=== PATIENT | female | born 1985 | race Caucasian/White ===

== ENCOUNTER 2017-01-24 15:11 | Emergency (ER) | payer MEDICAID ==
[~2017-01-24] VITALS: Ht 157.5 cm; Wt 83.8 kg
[~2017-01-24 15:11] MED LIST: ATEN25TA PO; [UNRECOGNIZED DRUG - REMARK]
[2017-01-24 15:38] LABS: HEMATOCRIT 42.7 % (34.6-47.8); HEMOGLOBIN 14.1 g/dL (11.7-16.4); WHITE BLOOD COUNT 9.9 x10^3/uL (3.4-10)
[2017-01-24 17:35] VITALS: BP 126/77
== END 2017-01-24 17:50 | disposition home or self-care (01) ==
LOC: ED 17:44
DX: R53.1 Weakness (principal); F43.0 Acute stress reaction; G40.909 Epilepsy, unspecified, not intractable, without status epilepticus
CPT/HCPCS: 36415; 70450; 70496; 70498; 80047; 85025; 85610; 85730; 93005; 99285

== ENCOUNTER 2019-03-04 14:05 | Emergency (ER) | payer MEDICAID ==
[~2019-03-04] VITALS: Ht 157.5 cm; Wt 78.8 kg
[2019-03-04] MEDS ORDERED: SODIUM CHLORIDE FLUSH 10ML SYR IVF ONE (14:30)
[2019-03-04] MEDS ORDERED: ONDANSETRON 2MG/ML, 2ML IVPush ONE (14:30)
[2019-03-04] MEDS ORDERED: MORPHINE SULFATE 4 MG/ML, 1ML IVPush PRN (14:30)
--- NOTE | 2019-03-04 14:31 | NUR ---
TO ED. LMP JAN 27. LOWER ABD CRAMPING, +. 8 MISCARRIAGES (1 ECTOPIC) 1 . G13. 3 LIVING CHILDREN. NO BLEEDING/DISCHARGE. CRAMPING SINCE LAST NIGHT. 8/10 PAIN. HX SEIZURES. CALL RIOS IN REACH, AWAITING MD SANDERS.
[2019-03-04 14:38] LABS: BASOPHILS # (AUTO) 0.01 x10^3/uL (0-0.1); BASOPHILS % (AUTO) 0 % (0-1); EOSINOPHILS # (AUTO) 0.12 x10^3/uL (0-0.4); EOSINOPHILS % (AUTO) 1 % (1-7); LYMPHOCYTES # (AUTO) 1.58 x10^3/uL (1-3.4); LYMPHOCYTES % (AUTO) 16 % (22-44); MD NO; MEAN CORPUSCULAR HEMOGLOBIN 30.8 pg (27.0-34.8); MEAN CORPUSCULAR HGB CONC 32.8 g/dL (32.4-35.8); MEAN CORPUSCULAR VOLUME 93.8 fL (80-100); MEAN PLATELET VOLUME 8.6 fL (7.4-10.4); MONOCYTES % (AUTO) 5 % (2-9); NEUTROPHILS % (AUTO) 78 % (42-75); PLATELET COUNT 322 x10^3/uL (130-400); RED BLOOD COUNT 4.13 x10^6/uL (3.82-5.3); RED CELL DISTRIBUTION WIDTH 15.8 % (9.6-15.2)
[2019-03-04 14:48] LABS: ALBUMIN 3.9 g/dL (3.4-5.0); ANION GAP 7 mmol/L (5-15); CALCIUM 8.5 mg/dL (8.5-10.1); CHLORIDE 110 mmol/L (98-107); CREATININE 0.69 mg/dL (0.55-1.02)
--- NOTE | 2019-03-04 14:54 | NUR ---
PT TO ULTRA SOUND
[2019-03-04] MEDS ORDERED: MORPHINE SULFATE 4 MG/ML, 1ML ONE (14:57)
[2019-03-04] MEDS ORDERED: ONDANSETRON 2MG/ML, 2ML ONE (14:57)
[2019-03-04 15:09] LABS: MICROSCOPIC INDICATED
[2019-03-04 15:12] LABS: CULTURE INDICATED? YES
[2019-03-04 15:27] VITALS: BP 123/76
--- NOTE | 2019-03-04 15:37 | NUR ---
ER NIHARIKA FORREST AT BEDSIDE TO DISCUSS POC
== END 2019-03-04 16:05 | disposition home or self-care (01) ==
LOC: ED 15:22
DX: O26.891 Other specified pregnancy related conditions, first trimester (principal); R10.31 Right lower quadrant pain; R11.0 Nausea; G40.909 Epilepsy, unspecified, not intractable, without status epilepticus; G43.909 Migraine, unspecified, not intractable, without status migrainosus
CPT/HCPCS: 36415; 76830; 80048; 81001; 82040; 84702; 85025; 86901; 87086; 96374; 96375; 99284; J2270; J2405

== ENCOUNTER 2019-03-20 08:59 | Emergency (ER) | payer SELFPAY ==
[~2019-03-20] VITALS: Ht 157.5 cm; Wt 77.0 kg
[2019-03-20 09:08] VITALS: BP 119/78
--- NOTE | 2019-03-20 09:35 | NUR ---
Justin ramirez. EDMD at bedside.
[2019-03-20 09:46] LABS: BASOPHILS # (AUTO) 0.02 x10^3/uL (0-0.1); BASOPHILS % (AUTO) 0 % (0-1); EOSINOPHILS # (AUTO) 0.02 x10^3/uL (0-0.4); EOSINOPHILS % (AUTO) 0 % (1-7); LYMPHOCYTES # (AUTO) 1.15 x10^3/uL (1-3.4); LYMPHOCYTES % (AUTO) 14 % (22-44); MD NO; MEAN CORPUSCULAR HEMOGLOBIN 30.5 pg (27.0-34.8); MEAN CORPUSCULAR HGB CONC 33.1 g/dL (32.4-35.8); MEAN CORPUSCULAR VOLUME 92.3 fL (80-100); MEAN PLATELET VOLUME 8.9 fL (7.4-10.4); MONOCYTES # (AUTO) 0.41 x10^3/uL (0.2-0.8); MONOCYTES % (AUTO) 5 % (2-9); NEUTROPHILS # (AUTO) 6.75 x10^3/uL (1.8-6.8); NEUTROPHILS % (AUTO) 81 % (42-75); PLATELET COUNT 228 x10^3/uL (130-400); RED BLOOD COUNT 4.24 x10^6/uL (3.82-5.3); RED CELL DISTRIBUTION WIDTH 14.6 % (9.6-15.2)
--- NOTE | 2019-03-20 09:48 | NUR ---
Pt states, "I had four seizures today. Pt denies trauma to head. No oral trauma observed. Pt states, "I did pee myself a little." Pt states, "I am , it is too early to tell how far along I am. This is my fourth , I have three living children, all vaginal births, and no complications or premature births. I am having some cramping, no bleeding or discharge though." Pt ambulates to room with steady gait and balance. NADN. Pt provided UA cup with instruciton, pt stated verbal understanding. Pt ambulates back to room with UA cup and sample with steady gait and balance. Pt connected to NIBP cuff, continous pulse ox, and cardiac exercise physiologist. Seizure precautions in place. Warm blankets provided per request. Pending ultrasound at this time. UA sent to lab.
[2019-03-20 09:57] LABS: ALANINE AMINOTRANSFERASE 24 U/L (12-78); ALBUMIN 3.6 g/dL (3.4-5.0); ANION GAP 6 mmol/L (5-15); CALCIUM 8.7 mg/dL (8.5-10.1); CHLORIDE 108 mmol/L (98-107); CREATININE 0.77 mg/dL (0.55-1.02)
[2019-03-20 09:59] LABS: ALKALINE PHOSPHATASE 72 U/L (45-117); BILIRUBIN,TOTAL 0.4 mg/dL (0.2-1.0); TOTAL PROTEIN 7.5 g/dL (6.4-8.2)
[2019-03-20 10:17] LABS: CULTURE INDICATED? YES; MICROSCOPIC INDICATED
--- NOTE | 2019-03-20 12:04 | NUR ---
Patient given discharge instructions and they have confirmed that they understand the instructions. Patient ambulatory with steady gait.
== END 2019-03-20 12:05 | disposition home or self-care (01) ==
LOC: ED 09:27
DX: O26.891 Other specified pregnancy related conditions, first trimester (principal); G40.319 Generalized idiopathic epilepsy and epileptic syndromes, intractable, without status epilepticus; Z3A.01 Less than 8 weeks gestation of pregnancy
CPT/HCPCS: 36415; 76801; 80053; 81001; 85025; 87086; 93005; 99284

== ENCOUNTER 2019-08-08 18:37 | Emergency (ER) | payer MEDICAID ==
[~2019-08-08] VITALS: Ht 160 cm; Wt 73.1 kg
--- NOTE | 2019-08-08 18:51 | NUR ---
Patient presents to ER c/o acute abd pain since 1600. Patient was sitting when the pain started. Patient states she has had diarrhea. Denies vag bleeding. + test yesterday. Has cysts on bilat ovaries. Patient is in obvious pain. Respirations even and unlabored.
[2019-08-08] MEDS ORDERED: ONDANSETRON 2MG/ML, 2ML IVPush ONE (19:00)
[2019-08-08] MEDS ORDERED: MORPHINE SULFATE 4 MG/ML, 1ML ONE ×2 (19:02→20:44)
[2019-08-08] MEDS ORDERED: ONDANSETRON 2MG/ML, 2ML ONE (19:02)
[2019-08-08 19:11] LABS: BASOPHILS # (AUTO) 0.03 x10^3/uL (0-0.1); BASOPHILS % (AUTO) 0 % (0-1); EOSINOPHILS # (AUTO) 0.09 x10^3/uL (0-0.4); EOSINOPHILS % (AUTO) 1 % (1-7); LYMPHOCYTES # (AUTO) 2.29 x10^3/uL (1-3.4); LYMPHOCYTES % (AUTO) 24 % (22-44); MD NO; MEAN CORPUSCULAR HEMOGLOBIN 30.8 pg (27.0-34.8); MEAN CORPUSCULAR HGB CONC 32.9 g/dL (32.4-35.8); MEAN CORPUSCULAR VOLUME 93.5 fL (80-100); MEAN PLATELET VOLUME 9.1 fL (7.4-10.4); MONOCYTES # (AUTO) 0.51 x10^3/uL (0.2-0.8); MONOCYTES % (AUTO) 5 % (2-9); NEUTROPHILS # (AUTO) 6.74 x10^3/uL (1.8-6.8); NEUTROPHILS % (AUTO) 70 % (42-75); PLATELET COUNT 265 x10^3/uL (130-400); RED BLOOD COUNT 4.24 x10^6/uL (3.82-5.3); RED CELL DISTRIBUTION WIDTH 14.6 % (9.6-15.2)
[2019-08-08] MEDS: MORPHINE SULFATE 4 MG/ML, 1ML IVPush PRN ×2 (19:18→20:46)
[2019-08-08 19:19] LABS: ALANINE AMINOTRANSFERASE 19 U/L (12-78); ALBUMIN 3.9 g/dL (3.4-5.0); ANION GAP 7 mmol/L (5-15); CALCIUM 8.9 mg/dL (8.5-10.1); CHLORIDE 109 mmol/L (98-107); CREATININE 0.86 mg/dL (0.55-1.02)
[2019-08-08 19:24] LABS: ALKALINE PHOSPHATASE 80 U/L (45-117); BILIRUBIN,TOTAL 0.3 mg/dL (0.2-1.0); TOTAL PROTEIN 8.2 g/dL (6.4-8.2)
--- NOTE | 2019-08-08 19:44 | NUR ---
Patient states she is unable to provide urine at this time.
[2019-08-08] MEDS ORDERED: SODIUM CHLORIDE 0.9% 1,000ML IVBOLUS ONE (20:00)
[2019-08-08] MEDS ORDERED: SODIUM CHLORIDE FLUSH 10ML SYR IVF ONE (20:00)
[2019-08-08 20:50] VITALS: BP 136/69
[2019-08-08 20:56] LABS: MICROSCOPIC NOT IND
--- NOTE | 2019-08-08 21:37 | NUR ---
Patient/Caregiver given discharge instructions and they have confirmed that they understand the instructions. Patient ambulatory with steady gait.
== END 2019-08-08 21:40 | disposition home or self-care (01) ==
LOC: ED 19:05
DX: O26.891 Other specified pregnancy related conditions, first trimester (principal); R10.31 Right lower quadrant pain; R19.7 Diarrhea, unspecified; Z3A.00 Weeks of gestation of pregnancy not specified
CPT/HCPCS: 36415; 76801; 80053; 81003; 84702; 85025; 86850; 86900; 96374; 96375; 96376; 99284; J2270; J2405; J7030

== ENCOUNTER 2019-08-10 10:27 | Emergency (ER) | payer MEDICAID ==
[~2019-08-10] VITALS: Ht 157.5 cm; Wt 72.6 kg
[2019-08-10 10:34] VITALS: BP 119/79
--- NOTE | 2019-08-10 11:19 | NUR ---
INCIDENT RESPONSE ANALYST: PT AMBULATORY TO ROOM FROM [facility] WITH STEADY GAIT WITH DIDIER LEE
[2019-08-10 12:35] LABS: BASOPHILS # (AUTO) 0.02 x10^3/uL (0-0.1); BASOPHILS % (AUTO) 0 % (0-1); EOSINOPHILS # (AUTO) 0.04 x10^3/uL (0-0.4); EOSINOPHILS % (AUTO) 1 % (1-7); LYMPHOCYTES # (AUTO) 1.32 x10^3/uL (1-3.4); LYMPHOCYTES % (AUTO) 17 % (22-44); MD NO; MEAN CORPUSCULAR HEMOGLOBIN 31.3 pg (27.0-34.8); MEAN CORPUSCULAR HGB CONC 33.4 g/dL (32.4-35.8); MEAN CORPUSCULAR VOLUME 93.8 fL (80-100); MEAN PLATELET VOLUME 8.8 fL (7.4-10.4); MONOCYTES # (AUTO) 0.37 x10^3/uL (0.2-0.8); MONOCYTES % (AUTO) 5 % (2-9); NEUTROPHILS # (AUTO) 6.07 x10^3/uL (1.8-6.8); NEUTROPHILS % (AUTO) 78 % (42-75); PLATELET COUNT 224 x10^3/uL (130-400); RED BLOOD COUNT 3.93 x10^6/uL (3.82-5.3); RED CELL DISTRIBUTION WIDTH 14.6 % (9.6-15.2)
[2019-08-10 12:47] LABS: ALANINE AMINOTRANSFERASE 19 U/L (12-78); ALBUMIN 3.6 g/dL (3.4-5.0); ANION GAP 8 mmol/L (5-15); CALCIUM 8.5 mg/dL (8.5-10.1); CHLORIDE 109 mmol/L (98-107); CREATININE 0.73 mg/dL (0.55-1.02)
--- NOTE | 2019-08-10 12:50 | NUR ---
PT TO US AT THIS TIME
[2019-08-10 12:52] LABS: ALKALINE PHOSPHATASE 61 U/L (45-117); BILIRUBIN,TOTAL 0.4 mg/dL (0.2-1.0); TOTAL PROTEIN 7.4 g/dL (6.4-8.2)
[2019-08-10 13:08] LABS: MICROSCOPIC NOT IND
== END 2019-08-10 16:37 | disposition home or self-care (01) ==
LOC: ED 12:34
DX: O26.891 Other specified pregnancy related conditions, first trimester (principal); R10.31 Right lower quadrant pain; R10.2 Pelvic and perineal pain; G40.909 Epilepsy, unspecified, not intractable, without status epilepticus; Z3A.01 Less than 8 weeks gestation of pregnancy
CPT/HCPCS: 36415; 72195; 76801; 80053; 81003; 84702; 85025; 99285

== ENCOUNTER 2019-09-03 11:31 | Emergency (ER) | payer MEDICAID ==
[~2019-09-03] VITALS: Ht 157.5 cm; Wt 72.3 kg
[2019-09-03] MEDS ORDERED: ONDANSETRON ODT 4 MG PO ONE (12:00)
--- NOTE | 2019-09-03 12:10 | NUR ---
PT PRESENTS TO ED WITH C/O LOWER BACK PAIN, RADIATING TO LEFT LOWER ABD AND VAG SPOTTING ONSET TODAY. PT STATES SHE HAS NOT YET SATURATED ONE PAD. PT STATES SHE IS 9 WEEKS . PT IS A&O, RESPS EVEN AND UNLABORED. URINE STRAIGHT CATH OBTAINED, STERILE TECHNIQUE MAINTAINED. PT TAKEN TO US AT THIS TIME, PT STATES SHE WILL WAIT FOR US TO BE COMPLETED BEFORE TAKING ZOFRAN.
[2019-09-03 12:23] LABS: MICROSCOPIC NOT IND
[2019-09-03] MEDS ORDERED: ACETAMINOPHEN 325 MG TABLET PO ONE (13:00)
[2019-09-03] MEDS ORDERED: ACETAMINOPHEN 325 MG TABLET ONE (13:01)
--- NOTE | 2019-09-03 13:08 | NUR ---
pt back from US, notes back/lower abd pain level 9/10. RE Pate notified, tylenol ordered and administered. pt denies nausea, declines zofran. pt a&o, resps even and unlabored, nadn. awaiting us/lab results and dispo.
[2019-09-03 13:09] LABS: BASOPHILS # (AUTO) 0.04 x10^3/uL (0-0.1); BASOPHILS % (AUTO) 0 % (0-1); EOSINOPHILS # (AUTO) 0.02 x10^3/uL (0-0.4); EOSINOPHILS % (AUTO) 0 % (1-7); LYMPHOCYTES # (AUTO) 1.48 x10^3/uL (1-3.4); LYMPHOCYTES % (AUTO) 17 % (22-44); MD NO; MEAN CORPUSCULAR HEMOGLOBIN 30.9 pg (27.0-34.8); MEAN CORPUSCULAR HGB CONC 33.3 g/dL (32.4-35.8); MEAN CORPUSCULAR VOLUME 92.6 fL (80-100); MEAN PLATELET VOLUME 8.7 fL (7.4-10.4); MONOCYTES % (AUTO) 6 % (2-9); NEUTROPHILS % (AUTO) 77 % (42-75); PLATELET COUNT 257 x10^3/uL (130-400); RED BLOOD COUNT 4.03 x10^6/uL (3.82-5.3); RED CELL DISTRIBUTION WIDTH 13.9 % (9.6-15.2)
[2019-09-03 13:21] LABS: ALBUMIN 3.2 g/dL (3.4-5.0); ANION GAP 8 mmol/L (5-15); CALCIUM 8.7 mg/dL (8.5-10.1); CHLORIDE 107 mmol/L (98-107)
--- NOTE | 2019-09-03 13:21 | NUR ---
RE LON AT BEDSIDE TO UPDATE PT WITH RESULTS AND POC.
--- NOTE | 2019-09-03 13:30 | NUR ---
PER EDPA LON PT IS RH POSITIVE WITH PREVIOUS SCREEN, NO NEED TO REPEAT RH TEST.
[2019-09-03 13:39] LABS: ALANINE AMINOTRANSFERASE 23 U/L (12-78); ALKALINE PHOSPHATASE 63 U/L (45-117); BILIRUBIN,TOTAL 0.3 mg/dL (0.2-1.0); CREATININE 0.67 mg/dL (0.55-1.02); TOTAL PROTEIN 7.2 g/dL (6.4-8.2)
[2019-09-03 14:18] VITALS: BP 121/68
--- NOTE | 2019-09-03 14:21 | NUR ---
late entry for 1421: pt given miscarriage package including candle and baby blanket, spiritual care consult placed for follow up. pt given instructions to follow up with obgyn. pt a&o, resps even and unlabored, nadn. pt notes tylenol helped pain. pt provided verbal support, pt is tearful but calm and states she is thankful she has one viable fetus. pt ambulatory with steady gait, given wc escort to dc desk.
== END 2019-09-03 14:21 | disposition home or self-care (01) ==
LOC: ED 13:54
DX: O30.001 Twin pregnancy, unspecified number of placenta and unspecified number of amniotic sacs, first trimester (principal); O99.89 Other specified diseases and conditions complicating pregnancy, childbirth and the puerperium; M54.5 Low back pain; Z3A.09 9 weeks gestation of pregnancy
CPT/HCPCS: 36415; 76801; 80053; 81003; 84702; 85025; 99284

== ENCOUNTER 2019-09-30 22:37 | Observation (INO) | payer MEDICAID ==
[~2019-09-30] VITALS: Ht 157.5 cm; Wt 77.1 kg
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
[2019-09-30] MEDS ORDERED: LORazepam 2 MG/ML, 1ML IVPush ONE (23:00)
[2019-09-30] MEDS ORDERED: SODIUM CHLORIDE FLUSH 10ML SYR IVF ONE (23:00)
[2019-09-30] MEDS ORDERED: SODIUM CHLORIDE 0.9% 1,000ML IVBOLUS ONE (23:00)
--- NOTE | 2019-09-30 23:10 | NUR ---
CXR has been to bedside. pt has had STAT head CT. lab has bene to bedside to draw
--- NOTE | 2019-09-30 23:11 | NUR ---
pt at bedside
[2019-09-30 23:17] LABS: BASOPHILS # (AUTO) 0.01 x10^3/uL (0-0.1); BASOPHILS % (AUTO) 0 % (0-1); EOSINOPHILS # (AUTO) 0.04 x10^3/uL (0-0.4); EOSINOPHILS % (AUTO) 1 % (1-7); LYMPHOCYTES # (AUTO) 1.61 x10^3/uL (1-3.4); LYMPHOCYTES % (AUTO) 18 % (22-44); MD NO; MEAN CORPUSCULAR HEMOGLOBIN 30.6 pg (27.0-34.8); MEAN CORPUSCULAR HGB CONC 33.4 g/dL (32.4-35.8); MEAN CORPUSCULAR VOLUME 91.5 fL (80-100); MEAN PLATELET VOLUME 8.7 fL (7.4-10.4); MONOCYTES # (AUTO) 0.55 x10^3/uL (0.2-0.8); MONOCYTES % (AUTO) 6 % (2-9); NEUTROPHILS % (AUTO) 75 % (42-75); PLATELET COUNT 244 x10^3/uL (130-400); RED BLOOD COUNT 4.18 x10^6/uL (3.82-5.3); RED CELL DISTRIBUTION WIDTH 13.5 % (9.6-15.2)
[2019-09-30 23:25] LABS: ALANINE AMINOTRANSFERASE 27 U/L (12-78); ALBUMIN 3.1 g/dL (3.4-5.0); ANION GAP 8 mmol/L (5-15); CALCIUM 8.9 mg/dL (8.5-10.1); CHLORIDE 109 mmol/L (98-107)
[2019-09-30 23:27] LABS: ALKALINE PHOSPHATASE 66 U/L (45-117); BILIRUBIN,TOTAL 0.4 mg/dL (0.2-1.0); TOTAL PROTEIN 7.4 g/dL (6.4-8.2)
--- NOTE | 2019-10-01 00:07 | NUR ---
pt in US
--- NOTE | 2019-10-01 01:30 | NUR ---
pt resting in position of comfort. able to turn her head and move arms slightly. calm and cooperative
[2019-10-01] MEDS ORDERED: LORazepam 2 MG/ML, 1ML ONE ×2 (01:59→13:32)
--- NOTE | 2019-10-01 02:04 | NUR ---
pt to be admitted. pt updated on POC. pt resting in position of comfort. no sz activity noted
--- NOTE | 2019-10-01 02:10 | NUR ---
pt assisted to bedpan. pt able to move with some assistance. urine sample collected. pt at bedside. pt denies pain at this time. sz precautions in place. no sz activity noted since admit. pt positioning for comfort
--- NOTE | 2019-10-01 02:20 | NUR ---
report to Christopher LEE for lunch
[2019-10-01 02:44] LABS: MICROSCOPIC INDICATED
[2019-10-01 02:51] LABS: AMPHETAMINE SCREEN, URINE Negative (Negative); BARBITURATE SCREEN, URINE Negative (Negative); BENZODIAZEPINE SCREEN, URINE Negative (Negative); CANNABINOID SCREEN, URINE Negative (Negative); COCAINE SCREEN, URINE Negative (Negative); METHADONE SCREEN, URINE Negative (Negative); OPIATE SCREEN, URINE Negative (Negative)
--- NOTE | 2019-10-01 03:05 | NUR ---
pt resting on gurney in no apparent distress. pt is able to talk and answer questions. some movement of extrmeities. pt able to move her head
--- NOTE | 2019-10-01 03:10 | NUR ---
NS infusion completed
--- NOTE | 2019-10-01 03:33 | NUR ---
hospitalist at bedside to evaluate for admit
--- NOTE | 2019-10-01 03:45 | NUR ---
hospitalist still at bedside
[2019-10-01] MEDS ORDERED: POTASSIUM CHLORIDE 20 MEQ TAB.ER.PRT PO ONE (04:30)
--- NOTE | 2019-10-01 04:40 | NUR ---
pt sleeping. easily arousable. no sz type activity noted since admit. pt placed on hospital bed. positioning for comfort. lights dimmed. no family at bedside at this time
--- NOTE | 2019-10-01 05:54 | NUR ---
no changes. pt sleeping. sz precautions in place. no sz like activity noted since admit. no apparent distress. awaiting admit bed assignment. no family at bedside
--- NOTE | 2019-10-01 06:38 | NUR ---
bed assignment has been recieved. attempting to call report
--- NOTE | 2019-10-01 06:39 | NUR ---
report called to Teddy LEE
--- NOTE | 2019-10-01 07:00 | NUR ---
pt to floor via hospital bed. pt sleeping. arousable. no sz activity noted
[2019-10-01 07:36] VITALS: BP 102/78
[2019-10-01] MEDS: NITROFURANTOIN (MACROBID) 100 MG CAPSULE PO SCH ×2 (09:00→20:48)
[2019-10-01] MEDS ORDERED: LORazepam 2 MG/ML, 1ML IVPush PRN (14:00)
[2019-10-01 14:26] VITALS: BP 120/76
[2019-10-01] MEDS: ACETAMINOPHEN 325 MG TABLET PO PRN (18:34)
[2019-10-01 19:41] VITALS: BP 109/70
[2019-10-02 00:41] VITALS: BP 110/74
[2019-10-02 05:14] LABS: ANION GAP 7 mmol/L (5-15); CALCIUM 8.6 mg/dL (8.5-10.1); CHLORIDE 110 mmol/L (98-107)
[2019-10-02 06:33] VITALS: BP 97/63
[2019-10-02] MEDS: NITROFURANTOIN (MACROBID) 100 MG CAPSULE PO SCH ×2 (09:05→20:58)
[2019-10-02 13:11] VITALS: BP 107/68
[2019-10-02] MEDS: ACETAMINOPHEN 325 MG TABLET PO PRN (13:23)
[2019-10-02 20:20] VITALS: BP 94/58
[2019-10-03 01:00] VITALS: BP 102/61
[2019-10-03 07:20] VITALS: BP 97/62
[2019-10-03] MEDS: ACETAMINOPHEN 325 MG TABLET PO PRN (08:03)
[2019-10-03] MEDS: NITROFURANTOIN (MACROBID) 100 MG CAPSULE PO SCH (08:03)
[2019-10-03] MEDS ORDERED: ONDANSETRON 2MG/ML, 2ML IVPush PRN (10:00)
[2019-10-03] MEDS ORDERED: ONDA4TAB7 PO (11:08)
[2019-10-03] MEDS ORDERED: NITR100C6 PO (11:08)
[2019-10-03 12:08] VITALS: BP 106/69
== END 2019-10-03 12:55 | disposition home or self-care (01) ==
LOC: ED 10-01 01:36 → INTOOBSV 10-01 01:53 → EDIP 10-01 01:53 → 4WST 10-01 07:14 → DCLOUNGE 10-03 12:48
PROVIDERS: ADMIT Family Medicine; ATTEND Hospitalist
DX: O99.351 Diseases of the nervous system complicating pregnancy, first trimester (principal); G40.909 Epilepsy, unspecified, not intractable, without status epilepticus; O99.341 Other mental disorders complicating pregnancy, first trimester; O26.893 Other specified pregnancy related conditions, third trimester; O99.281 Endocrine, nutritional and metabolic diseases complicating pregnancy, first trimester; E87.6 Hypokalemia; O20.8 Other hemorrhage in early pregnancy; R53.2 Functional quadriplegia; R10.30 Lower abdominal pain, unspecified; Z3A.13 13 weeks gestation of pregnancy; Z79.899 Other long term (current) drug therapy; Z91.19 Patient's noncompliance with other medical treatment and regimen
CPT/HCPCS: 36415; 70450; 70551; 71045; 76801; 80048; 80053; 80307; 81001; 85025; 86901; 87086; 93005; 95816; 96361; 96374; 96375; 97162; 97166; 97530; 99285; G0378; J2060; J2405; J7030

== ENCOUNTER 2019-11-05 19:46 | Emergency (ER) | payer MEDICAID ==
[~2019-11-05] VITALS: Ht 157.5 cm; Wt 72.0 kg
[~2019-11-05 19:46] MED LIST changes: +NITR100C6 PO; +ONDA4TAB7 PO
[2019-11-05 20:34] VITALS: BP 121/77
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
--- NOTE | 2019-11-05 21:06 | NUR ---
URINE SAMPLE COLLECTED.
[2019-11-05 21:29] LABS: BASOPHILS # (AUTO) 0.03 x10^3/uL (0-0.1); BASOPHILS % (AUTO) 0 % (0-1); EOSINOPHILS # (AUTO) 0.08 x10^3/uL (0-0.4); EOSINOPHILS % (AUTO) 1 % (1-7); LYMPHOCYTES # (AUTO) 1.75 x10^3/uL (1-3.4); LYMPHOCYTES % (AUTO) 18 % (22-44); MD NO; MEAN CORPUSCULAR HGB CONC 33.6 g/dL (32.4-35.8); MEAN CORPUSCULAR VOLUME 92.2 fL (80-100); MEAN PLATELET VOLUME 8.5 fL (7.4-10.4); MONOCYTES # (AUTO) 0.58 x10^3/uL (0.2-0.8); MONOCYTES % (AUTO) 6 % (2-9); NEUTROPHILS # (AUTO) 7.18 x10^3/uL (1.8-6.8); NEUTROPHILS % (AUTO) 75 % (42-75); PLATELET COUNT 256 x10^3/uL (130-400); RED BLOOD COUNT 3.68 x10^6/uL (3.82-5.3); RED CELL DISTRIBUTION WIDTH 14.2 % (9.6-15.2)
[2019-11-05 21:31] LABS: MICROSCOPIC AUTO
[2019-11-05 21:40] LABS: ALANINE AMINOTRANSFERASE 19 U/L (12-78); ALBUMIN 2.8 g/dL (3.4-5.0); ANION GAP 7 mmol/L (5-15); CALCIUM 8.6 mg/dL (8.5-10.1); CHLORIDE 108 mmol/L (98-107); CREATININE 0.66 mg/dL (0.55-1.02)
[2019-11-05 21:43] LABS: ALKALINE PHOSPHATASE 70 U/L (45-117); BILIRUBIN,TOTAL 0.3 mg/dL (0.2-1.0); TOTAL PROTEIN 6.9 g/dL (6.4-8.2)
== END 2019-11-05 22:55 | disposition home or self-care (01) ==
LOC: ED 21:34
DX: O26.892 Other specified pregnancy related conditions, second trimester (principal); F41.1 Generalized anxiety disorder; R94.31 Abnormal electrocardiogram [ECG] [EKG]; Z3A.17 17 weeks gestation of pregnancy
CPT/HCPCS: 36415; 80053; 81001; 85025; 87086; 93005; 99284

== ENCOUNTER 2020-03-31 11:21 | Outpatient (CLI) | payer MEDICAID | END 2020-03-31 13:21 | disposition home or self-care (01) | LOC: LDOP 11:21 | PROVIDERS: ATTEND Obstetrics & Gynecology | DX: O42.90 Premature rupture of membranes, unspecified as to length of time between rupture and onset of labor, unspecified weeks of gestation (principal) | CPT/HCPCS: 59025; 84112 ==

== ENCOUNTER 2020-04-09 11:44 | Inpatient (IN) | payer MEDICAID ==
[~2020-04-09] VITALS: Ht 157.5 cm; Wt 84.1 kg
[2020-04-09] MEDS ORDERED: MISOPROSTOL 200 MCG TABLET ONE (12:20)
[2020-04-09] MEDS ORDERED: OXYTOCIN 30U/ 0.9% NaCL 500ML 500 ML ONE (12:20)
[2020-04-09] MEDS ORDERED: NEWBORN KIT ONE (12:20)
[2020-04-09] MEDS ORDERED: LIDOCAINE 1%, 20ML ONE (12:20)
[2020-04-09] MEDS ORDERED: FENTANYL PF 100 MCG/2ML IV PRN (12:30)
[2020-04-09] MEDS ORDERED: CALCIUM CARBONATE 500 MG TAB.CHEW PO PRN (12:30)
[2020-04-09] MEDS ORDERED: OXYTOCIN 30U/ 0.9% NaCL 500ML 500 ML IV ONE (12:30)
[2020-04-09] MEDS ORDERED: ONDANSETRON 2MG/ML, 2ML IVPush PRN (12:30)
[2020-04-09] MEDS ORDERED: FENTANYL PF 100 MCG/2ML IVPush PRN (12:30)
[2020-04-09] MEDS ORDERED: LACTATED RINGERS 1,000 ML IV SCH ×2 (12:30→23:00)
[2020-04-09] MEDS ORDERED: TERBUTALINE 1 MG/ML, 1ML IVPush PRN (12:30)
[2020-04-09] MEDS ORDERED: TERBUTALINE 1 MG/ML, 1ML SQ PRN (12:30)
[2020-04-09] MEDS ORDERED: OXYTOCIN 30U/ 0.9% NaCL 500ML 500 ML IV PRN (12:30)
[2020-04-09] MEDS ORDERED: D5%-LACTATED RINGERS 1,000 ML IV SCH (12:30)
[2020-04-09 12:51] LABS: BASOPHILS % (AUTO) 0 % (0-1); EOSINOPHILS % (AUTO) 1 % (1-7); LYMPHOCYTES % (AUTO) 17 % (22-44); MEAN CORPUSCULAR HEMOGLOBIN 27.4 pg (27.0-34.8); MEAN CORPUSCULAR HGB CONC 32.8 g/dL (32.4-35.8); MEAN PLATELET VOLUME 8.6 fL (7.4-10.4); MONOCYTES % (AUTO) 7 % (2-9); NEUTROPHILS % (AUTO) 75 % (42-75); PLATELET COUNT 248 x10^3/uL (130-400); RED BLOOD COUNT 3.77 x10^6/uL (3.82-5.3); RED CELL DISTRIBUTION WIDTH 16.4 % (9.6-15.2)
[2020-04-09 12:53] LABS: MD NO
[2020-04-09] MEDS ORDERED: MISOPROSTOL 25 MCG TABLET ONE (13:31)
[2020-04-09] MEDS ORDERED: MISOPROSTOL 25 MCG TABLET VG PRN (14:00)
[2020-04-09] MEDS ORDERED: BUPIVACAINE 0.25% ONE (22:24)
[2020-04-09] MEDS ORDERED: FENTANYL/BUPIV./NS/PF 250 ML EPIDCONT ONE (22:24)
[2020-04-09] MEDS ORDERED: FENTANYL/BUPIV./NS/PF 250 ML EPIDCONT SCH (23:00)
[2020-04-09] MEDS ORDERED: LACTATED RINGERS 1,000 ML IVBOLUS PRN (23:00)
[2020-04-09] MEDS ORDERED: EPHEDRINE 50 MG/ML, 1ML IVPush PRN (23:00)
[2020-04-09] MEDS ORDERED: EPHEDRINE 50 MG/ML, 1ML ONE ×2 (23:01→23:14)
[2020-04-10] MEDS ORDERED: SIMETHICONE 80 MG CHEW TAB PO PRN (03:00)
[2020-04-10] MEDS ORDERED: MISOPROSTOL 200 MCG TABLET PR PRN (03:00)
[2020-04-10] MEDS ORDERED: OXYcodone IR 5MG TABLET PO PRN (03:00)
[2020-04-10] MEDS ORDERED: ONDANSETRON 2MG/ML, 2ML IV PRN (03:00)
[2020-04-10] MEDS ORDERED: ACETAMINOPHEN 325 MG TABLET PO PRN (03:00)
[2020-04-10] MEDS ORDERED: OXYcodone/APAP 5/325MG TABLET PO PRN (03:00)
[2020-04-10] MEDS ORDERED: DOCUSATE 100 MG CAPSULE PO PRN (03:00)
[2020-04-10] MEDS ORDERED: OXYTOCIN 30U/ 0.9% NaCL 500ML 500 ML IV SCH (03:00)
[2020-04-10] MEDS: IBUPROFEN 600 MG TABLET PO PRN ×2 (04:57→11:58)
[2020-04-10 05:05] VITALS: BP 111/65
[2020-04-10 06:10] VITALS: BP 110/72
[2020-04-10 07:45] VITALS: BP 111/74
[2020-04-10] MEDS: PRENATAL VIT/IRON/FA 1 EACH TABLET PO SCH (10:46)
[2020-04-10 10:58] LABS: BASOPHILS % (AUTO) 1 % (0-1); EOSINOPHILS % (AUTO) 0 % (1-7); LYMPHOCYTES % (AUTO) 10 % (22-44); MEAN CORPUSCULAR HEMOGLOBIN 26.9 pg (27.0-34.8); MEAN PLATELET VOLUME 8.6 fL (7.4-10.4); MONOCYTES % (AUTO) 6 % (2-9); NEUTROPHILS % (AUTO) 83 % (42-75); PLATELET COUNT 208 x10^3/uL (130-400); RED BLOOD COUNT 3.53 x10^6/uL (3.82-5.3); RED CELL DISTRIBUTION WIDTH 16.2 % (9.6-15.2)
[2020-04-10 11:29] LABS: MD SCAN
[2020-04-10 16:00] VITALS: BP 117/77
[2020-04-10] MEDS: DOCUSATE 50 MG/5 ML, 10ML UDC PO SCH (19:48)
[2020-04-10 19:52] VITALS: BP 137/79
[2020-04-11] MEDS: IBUPROFEN 600 MG TABLET PO PRN ×2 (00:48→08:30)
[2020-04-11 01:00] VITALS: BP 129/88
[2020-04-11 08:12] VITALS: BP 110/76
[2020-04-11] MEDS: PRENATAL VIT/IRON/FA 1 EACH TABLET PO SCH (08:30)
[2020-04-11] MEDS: DOCUSATE 50 MG/5 ML, 10ML UDC PO SCH (09:25)
[2020-04-11] MEDS ORDERED: IBUP-1222 PO (11:05)
== END 2020-04-11 11:30 | disposition home or self-care (01) | DRG 807 ==
LOC: LDIP 12:12 → 2NW 04-10 04:21
PROVIDERS: ADMIT Obstetrics & Gynecology; ATTEND Obstetrics & Gynecology
PROC: 10E0XZZ Delivery of Products of Conception, External Approach (ICD-10-PCS; principal; 2020-04-10)
PROC: 3E0R3BZ Introduction of Anesthetic Agent into Spinal Canal, Percutaneous Approach (ICD-10-PCS; 2020-04-10)
PROC: 00HU33Z Insertion of Infusion Device into Spinal Canal, Percutaneous Approach (ICD-10-PCS; 2020-04-10)
DX: O80 Encounter for full-term uncomplicated delivery (principal); Z37.0 Single live birth; Z20.822 Contact with and (suspected) exposure to COVID-19; Z3A.39 39 weeks gestation of pregnancy
CPT/HCPCS: 36415; 85025; 86592; 86850; 86900; 87635; G0378; J2590

== ENCOUNTER 2020-04-11 23:54 | Emergency (ER) | payer MEDICAID ==
[~2020-04-11] VITALS: Ht 157.5 cm; Wt 65.0 kg
[~2020-04-11 23:54] MED LIST changes: +IBUP-1222 PO
--- NOTE | 2020-04-12 00:16 | NUR ---
TASK RN. YOLIE FOR DIZZYNESS AND FEELING LIGHT HEADED. PT IS 2 DAYS . PT TOOK A PILL OF LECITHIN FOR FIRST TIME WHICH SHE ORDERED OFF [employer]. PT IS CONCERED FOR POSSIBLE ALLERGIC REACTION. PTRECEIVED 600 MLS NS FROM EMS AND PIV PLACED. PT DENIES BLEEDING AND DELIVERED VAGINALLY WITH NO COMPLICATIONS. [id number]
[2020-04-12 00:59] LABS: BASOPHILS % (AUTO) 0 % (0-1); EOSINOPHILS % (AUTO) 1 % (1-7); LYMPHOCYTES % (AUTO) 19 % (22-44); MD NO; MEAN CORPUSCULAR HEMOGLOBIN 27.2 pg (27.0-34.8); MEAN CORPUSCULAR HGB CONC 32.7 g/dL (32.4-35.8); MEAN PLATELET VOLUME 8.8 fL (7.4-10.4); MONOCYTES % (AUTO) 7 % (2-9); NEUTROPHILS % (AUTO) 73 % (42-75); PLATELET COUNT 240 x10^3/uL (130-400); RED CELL DISTRIBUTION WIDTH 16.8 % (9.6-15.2)
[2020-04-12 01:08] LABS: ALANINE AMINOTRANSFERASE 21 U/L (12-78); ALBUMIN 2.3 g/dL (3.4-5.0); ANION GAP 7 mmol/L (5-15); CALCIUM 8.5 mg/dL (8.5-10.1); CHLORIDE 113 mmol/L (98-107); CREATININE 0.79 mg/dL (0.55-1.02)
[2020-04-12 01:10] LABS: ALKALINE PHOSPHATASE 171 U/L (45-117); BILIRUBIN,TOTAL 0.2 mg/dL (0.2-1.0); TOTAL PROTEIN 6.3 g/dL (6.4-8.2)
[2020-04-12] MEDS ORDERED: ACETAMINOPHEN 500 MG TABLET ONE (01:27)
[2020-04-12] MEDS ORDERED: ONDANSETRON ODT 4 MG ONE (01:27)
[2020-04-12] MEDS ORDERED: ACETAMINOPHEN 500 MG TABLET PO ONE (01:30)
[2020-04-12] MEDS ORDERED: ONDANSETRON 4 MG TABLET PO ONE (01:30)
--- NOTE | 2020-04-12 01:32 | NUR ---
INA RN: PT ONLY WANTS [address] FINLEY AWARE. VS STABLE. NO ACUTE DISTRESS NOTED. FAMILY AT BEDSIDE. WILL CONTINUE TO MONITOR WHILE PRIMARY RN IS ON BREAK
[2020-04-12 01:33] VITALS: BP 102/62
--- NOTE | 2020-04-12 01:49 | NUR ---
BREAK RN: REPORT GIVEN TO JESUS YEBOAH
== END 2020-04-12 02:10 | disposition home or self-care (01) ==
LOC: ED 04-12 00:24
DX: D62 Acute posthemorrhagic anemia (principal); R42 Dizziness and giddiness; R53.1 Weakness
CPT/HCPCS: 36415; 80053; 85025; 93005; 99284; Q0162

== ENCOUNTER 2020-04-14 20:23 | Emergency (ER) | payer MEDICAID ==
[~2020-04-14] VITALS: Ht 157.5 cm; Wt 79.0 kg
[2020-04-14] MEDS ORDERED: SODIUM CHLORIDE FLUSH 10ML SYR IVF ONE (21:00)
[2020-04-14 21:16] LABS: BASOPHILS % (AUTO) 1 % (0-1); EOSINOPHILS % (AUTO) 1 % (1-7); LYMPHOCYTES % (AUTO) 9 % (22-44); MEAN CORPUSCULAR HEMOGLOBIN 27.2 pg (27.0-34.8); MEAN CORPUSCULAR HGB CONC 32.5 g/dL (32.4-35.8); MEAN PLATELET VOLUME 8.2 fL (7.4-10.4); MONOCYTES % (AUTO) 5 % (2-9); NEUTROPHILS % (AUTO) 85 % (42-75); PLATELET COUNT 261 x10^3/uL (130-400); RED BLOOD COUNT 3.83 x10^6/uL (3.82-5.3)
[2020-04-14 21:17] LABS: MD NO
[2020-04-14 21:33] LABS: ALBUMIN 2.7 g/dL (3.4-5.0); ANION GAP 6 mmol/L (5-15); CALCIUM 8.7 mg/dL (8.5-10.1); CHLORIDE 111 mmol/L (98-107)
[2020-04-14 21:36] LABS: CREATININE 0.76 mg/dL (0.55-1.02)
--- NOTE | 2020-04-14 23:23 | NUR ---
pt called to room from lobby
[2020-04-14] MEDS ORDERED: OMNIPAQUE 350 MG/ML, 100ML BOTTLE ONE (23:59)
--- NOTE | 2020-04-15 | NUR ---
patient changed into gown. placed on pelvic bed. ambulated to bathroom. uncle at bedside. call mustafa in reach. safety maintained
[2020-04-15 00:19] LABS: MICROSCOPIC AUTO
--- NOTE | 2020-04-15 00:30 | NUR ---
patient in NAD. resting in bed. c/o pain in abdomen with movement. call mustafa in reach. safety maintained. will continue to monitor
--- NOTE | 2020-04-15 01:31 | NUR ---
patient resting in bed. in NAD. call mustafa in reach. no further needs at this time. SHIRT PRESSER cart outside room for pelvic exam
[2020-04-15] MEDS ORDERED: IRON1TAB60 PO (01:34)
--- NOTE | 2020-04-15 01:50 | NUR ---
pelvix exam performed by Dr. Whitt and RN at bedside.
--- NOTE | 2020-04-15 02:35 | NUR ---
discharge instructions reviewed with patient. no further questions at this time. patient notified that we are culturing her urine as she repeated "i dont know how i got this". all personal belongings with patient. transferred to lobby via WC. VS remain stable on RA
[2020-04-15 02:54] VITALS: BP 111/64
== END 2020-04-15 02:57 | disposition home or self-care (01) ==
LOC: ED 23:44
DX: O86.22 Infection of bladder following delivery (principal); M54.5 Low back pain; G43.909 Migraine, unspecified, not intractable, without status migrainosus; G40.909 Epilepsy, unspecified, not intractable, without status epilepticus; Z90.49 Acquired absence of other specified parts of digestive tract
CPT/HCPCS: 36415; 74177; 76830; 80048; 81001; 82040; 84702; 85025; 86901; 87086; 99285; Q9967

== ENCOUNTER 2020-05-22 10:07 | Emergency (ER) | payer MEDICAID, OTHER ==
[~2020-05-22] VITALS: Ht 157.5 cm; Wt 70.0 kg
[~2020-05-22 10:07] MED LIST changes: +IRON1TAB60 PO
--- NOTE | 2020-05-22 11:02 | NUR ---
PT. IS NON-COMPLIANT WITH WEARIMG THE C-COLLAR.
--- NOTE | 2020-05-22 11:03 | NUR ---
ASSISTANT BUYER: PT TO ROOM FROM LOBBY
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
--- NOTE | 2020-05-22 11:57 | NUR ---
REPORT GIVEN TO MAURIZIO LEE.
--- NOTE | 2020-05-22 12:24 | NUR ---
pt in bed nursing infant.
[2020-05-22] MEDS ORDERED: METHOCARBAMOL 750 MG TABLET PO ONE (12:30)
[2020-05-22] MEDS ORDERED: PLEASE ENTER WEIGHT MC SCH (12:30)
[2020-05-22] MEDS ORDERED: METHOCARBAMOL 750 MG TABLET ONE (12:34)
--- NOTE | 2020-05-22 13:07 | NUR ---
pt down to xray
--- NOTE | 2020-05-22 13:14 | NUR ---
spoke with x ray. working on resulting images at this time.
--- NOTE | 2020-05-22 13:19 | NUR ---
pt back from xray
[2020-05-22 14:37] VITALS: BP 128/62
--- NOTE | 2020-05-22 14:39 | NUR ---
PT LEFT IN WHEELCHAIR WITH SPOUSE. WAS UP WALKING WITH STEADY GAIT. IF S&S WORSEN RETURN TO ER. GIVEN RX
== END 2020-05-22 14:44 | disposition home or self-care (01) ==
LOC: ED 13:28
DX: S39.012A Strain of muscle, fascia and tendon of lower back, initial encounter (principal); S16.1XXA Strain of muscle, fascia and tendon at neck level, initial encounter; G89.11 Acute pain due to trauma; M25.561 Pain in right knee; R10.9 Unspecified abdominal pain; G43.909 Migraine, unspecified, not intractable, without status migrainosus; V49.49XA Driver injured in collision with other motor vehicles in traffic accident, initial encounter; Y93.89 Activity, other specified; Y92.488 Other paved roadways as the place of occurrence of the external cause; Y99.8 Other external cause status
CPT/HCPCS: 72110; 72125; 99284

== ENCOUNTER 2020-05-23 20:10 | Emergency (ER) | payer MEDICAID, OTHER ==
[~2020-05-23] VITALS: Ht 157.5 cm; Wt 76.5 kg
[2020-05-23 21:46] LABS: BASOPHILS % (AUTO) 1 % (0-1); EOSINOPHILS % (AUTO) 2 % (1-7); LYMPHOCYTES % (AUTO) 28 % (22-44); MEAN CORPUSCULAR HEMOGLOBIN 28.1 pg (27.0-34.8); MEAN CORPUSCULAR HGB CONC 32.8 g/dL (32.4-35.8); MEAN PLATELET VOLUME 8.5 fL (7.4-10.4); MONOCYTES % (AUTO) 7 % (2-9); NEUTROPHILS % (AUTO) 63 % (42-75); PLATELET COUNT 263 x10^3/uL (130-400); RED BLOOD COUNT 4.32 x10^6/uL (3.82-5.3); RED CELL DISTRIBUTION WIDTH 19.3 % (9.6-15.2)
[2020-05-23 21:49] LABS: MD NO
[2020-05-23 21:59] LABS: ALANINE AMINOTRANSFERASE 25 U/L (12-78); ALBUMIN 3.7 g/dL (3.4-5.0); ANION GAP 10 mmol/L (5-15); CALCIUM 8.2 mg/dL (8.5-10.1); CHLORIDE 110 mmol/L (98-107); CREATININE 0.79 mg/dL (0.55-1.02)
[2020-05-23] MEDS ORDERED: OMNIPAQUE 350 MG/ML, 100ML BOTTLE ONE (22:00)
[2020-05-23 22:03] LABS: ALKALINE PHOSPHATASE 100 U/L (45-117); BILIRUBIN,TOTAL 0.2 mg/dL (0.2-1.0); TOTAL PROTEIN 7.5 g/dL (6.4-8.2)
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
[2020-05-23 23:31] VITALS: BP 121/76
[2020-05-23] MEDS ORDERED: IBUPROFEN 800 MG TABLET ONE (23:52)
[2020-05-24] MEDS ORDERED: IBUPROFEN 800 MG TABLET PO ONE
== END 2020-05-24 | disposition home or self-care (01) ==
LOC: ED 21:39
DX: R10.31 Right lower quadrant pain (principal); G40.909 Epilepsy, unspecified, not intractable, without status epilepticus; Z90.49 Acquired absence of other specified parts of digestive tract; V49.09XA Driver injured in collision with other motor vehicles in nontraffic accident, initial encounter; Y93.89 Activity, other specified; Y92.89 Other specified places as the place of occurrence of the external cause; Y99.8 Other external cause status
CPT/HCPCS: 36415; 74177; 80053; 84703; 85025; 99285; Q9967

== ENCOUNTER 2020-09-08 14:20 | Inpatient (IN) | payer MEDICAID ==
[~2020-09-08] VITALS: Ht 157.5 cm; Wt 76.0 kg
[2020-09-08] MEDS: LORazepam 2 MG/ML, 1ML IVPush PRN ×2 (14:20→14:40)
--- NOTE | 2020-09-08 14:25 | NUR ---
LATE ENTRY DUE TO PATIENT CARE: PATIENT HAVING SEIZURE, VERBAL ORDER FOR SECOND DOSE OF 2 MG ATIVAN RECEIVED FROM ERMD, GIVEN IV. ERMD AT BEDSIDE, VITALS STABLE THROUGHOUT SEIZURE AND AFTER. NAVDEEP WOULD LIKE PATIENT TAKEN TO CT.
[2020-09-08 14:33] LABS: BASOPHILS % (AUTO) 0 % (0-1); EOSINOPHILS % (AUTO) 2 % (1-7); LYMPHOCYTES % (AUTO) 32 % (22-44); MEAN CORPUSCULAR HEMOGLOBIN 30.1 pg (27.0-34.8); MEAN CORPUSCULAR HGB CONC 33.4 g/dL (32.4-35.8); MEAN PLATELET VOLUME 9.1 fL (7.4-10.4); MONOCYTES % (AUTO) 8 % (2-9); NEUTROPHILS % (AUTO) 58 % (42-75); PLATELET COUNT 268 x10^3/uL (130-400); RED BLOOD COUNT 4.34 x10^6/uL (3.82-5.3); RED CELL DISTRIBUTION WIDTH 14.9 % (9.6-15.2)
--- NOTE | 2020-09-08 14:33 | NUR ---
BIB EMS WITH CHIEF C/O LEFT-SIDED WEAKNESS. PER EMS LEFT-SIDED WEAKNESS STARTED AT 1300, PATIENT HAD WITNESSED SYNCOPAL EPISODE PRIOR. EMS REPORTS MULTIPLE WITNESSED SYNCOPAL EPISODES EN ROUTE. BLOOD GLUCOSE 88, 20 GUAGE IV STARTED EN ROUTE AND 4 MG ZOFRAN ADMINISTERED. PATIENT MET AT DOOR BY RN AND ERMD, NEURO ASSESSMENT PERFORMED, PATIENT HAD WITNESSED SEIZURE THAT LASTED ABOUT 15 SECONDS. 2 MG ATIVAN GIVEN IV PER VERBAL ORDER, CODE NEURO CANCELLED AND PATIENT TAKEN TO ROOM. CONNECTED TO MONITOR, SINUS TACH NOTED ON MONITOR, OTHER VSS, SEIZURE PRECAUTIONS IN PLACE.
--- NOTE | 2020-09-08 14:35 | NUR ---
PATIENT TO CT SCAN.
[2020-09-08 14:46] LABS: ALANINE AMINOTRANSFERASE 23 U/L (12-78); ALBUMIN 4.1 g/dL (3.4-5.0); ANION GAP 11 mmol/L (5-15); CHLORIDE 108 mmol/L (98-107); CREATININE 0.72 mg/dL (0.55-1.02)
[2020-09-08 14:48] LABS: ALKALINE PHOSPHATASE 106 U/L (45-117); BILIRUBIN,TOTAL 0.3 mg/dL (0.2-1.0); TOTAL PROTEIN 8.4 g/dL (6.4-8.2)
--- NOTE | 2020-09-08 15:09 | NUR ---
PATIENT RESTING IN GURNEY, EYES CLOSED, RESP EVEN AND UNLABORED, CONNECTED TO MONITOR, HR DOWN TO 90'S FROM 120-130'S, OTHER VSS, SEIZURE PRECAUTIONS IN PLACE, CALL LIGHT WITHIN REACH.
[2020-09-08] MEDS ORDERED: LORazepam 2 MG/ML, 1ML ONE (15:15)
--- NOTE | 2020-09-08 15:30 | NUR ---
ASSUMED CARE OF PT. SEIZURE PADS IN PLACE. PT RESPONDS TO PAINFUL STIMULI BY MOVING AND MOANING. WILL CONTINUE TO MONITOR
--- NOTE | 2020-09-08 16:25 | NUR ---
PT REMAINS OBTUNDED. MD TO RE-EVALUATE. WILL CONTINUE TO MONITOR
--- NOTE | 2020-09-08 17:19 | NUR ---
MD AT BEDSIDE AND PT RESPONDING. PT MOVING RIGHT EXTREMITIES WHEN ASKED. MOVING RIGHT EXTREMITIES, MOVING LEFT ARM BUT LIFTING IT SIX INCHES BEFORE DROPPING IT TO BED. AFTER MD LEFT ROOM, PT STATES SHE CANNOT MOVE LEFT LEG BUT CAN FEEL TOUCH. STATES SHE NEEDS A BREAST PUMP BECAUSE SHE IS LACTATING. PT THEN SHIVERING AND PROVIDED WARMER. INFORMED PT THAT MRI TO BE COMPLETED AND RECEIVING PERMISSION TO CALL TO INFORM HIM SHE IS HERE AND CIRCUMSTANCES.
--- NOTE | 2020-09-08 17:35 | NUR ---
OFF FLOOR TO MRI
[2020-09-08 17:49] LABS: SALICYLATE LEVEL < 1.7 mg/dL (2.8-20.0)
[2020-09-08] MEDS ORDERED: GADOTERATE 7.5 MMOL/15ML SYR ONE (17:59)
--- NOTE | 2020-09-08 18:54 | NUR ---
BACK IN ROOM FROM MRI. PT TALKING ON TELEPHONE. PROVIDED BREAST PUMP. PT NOW MOVING LEFT LEG BUT DROPS TO MATTY
--- NOTE | 2020-09-08 19:34 | NUR ---
AWAITING MRI REPORT FOR DISPO. PT IN NO DISTRESS. WILL CONTINUE TO MONITOR
--- NOTE | 2020-09-08 20:22 | NUR ---
RESTING WITH EYES CLOSED. BENNETT ORDERED BY MD AND REQUESTED FROM PHARMACY. INTENTION TO ADMIT
[2020-09-08] MEDS ORDERED: LEVETIRACETAM 1,000 MG in SODIUM CHLORIDE 0.9% 100 ML IV ONE (20:30)
[2020-09-08] MEDS ORDERED: SODIUM CHLORIDE FLUSH 10ML SYR IVF PRN (20:30)
--- NOTE | 2020-09-08 20:49 | NUR ---
REPORT TO LUPE LEE
--- NOTE | 2020-09-08 21:23 | NUR ---
PT AWAKE, SLOW TO RESPOND. HOSPITALIST AT FOR EVAL. PT +L SIDED WEAKNESS. ASSISTED C BED ARREDONDO, UDS COLLECTED & SENT. KEPPRA INFUSING WELL, AWARE OF PLAN TO TRANSFER UPSTAIRS. WILL CTM.
[2020-09-08] MEDS ORDERED: GABAPENTIN 300 MG CAPSULE PO PRN (21:30)
[2020-09-08] MEDS ORDERED: OXYcodone IR 5MG TABLET PO PRN (21:30)
[2020-09-08] MEDS ORDERED: DOCUSATE 100 MG CAPSULE PO PRN (21:30)
[2020-09-08] MEDS ORDERED: ONDANSETRON 2MG/ML, 2ML IVPush PRN (21:30)
[2020-09-08] MEDS ORDERED: ENALAPRILAT 1.25 MG/ML, 2ML IVPush PRN (21:30)
[2020-09-08] MEDS ORDERED: ACETAMINOPHEN 325 MG TABLET PO PRN (21:30)
[2020-09-08] MEDS ORDERED: GUAIFENESIN/DM 200-20MG, 10ML UDC PO PRN (21:30)
[2020-09-08] MEDS ORDERED: BACLOFEN 10 MG TABLET PO PRN (21:30)
[2020-09-08] MEDS ORDERED: ZOLPIDEM 5MG TABLET PO PRN (21:30)
[2020-09-08 21:44] LABS: AMPHETAMINE SCREEN, URINE Negative (Negative); BARBITURATE SCREEN, URINE Negative (Negative); BENZODIAZEPINE SCREEN, URINE Negative (Negative); CANNABINOID SCREEN, URINE Negative (Negative); COCAINE SCREEN, URINE Negative (Negative); METHADONE SCREEN, URINE Negative (Negative); OPIATE SCREEN, URINE Negative (Negative)
[2020-09-08 22:09] VITALS: BP 109/69
[2020-09-08] MEDS: LACTATED RINGERS 1,000 ML IV SCH (22:21)
[2020-09-08] MEDS: ENOXAPARIN 40 MG/0.4 ML SQ SCH (22:22)
[2020-09-09] VITALS (7 sets, daily range): BP systolic 96–135; BP diastolic 62–86
[2020-09-09 05:32] LABS: CHLORIDE 112 mmol/L (98-107)
[2020-09-09 05:37] LABS: ANION GAP 3 mmol/L (5-15); CALCIUM 8.3 mg/dL (8.5-10.1); CREATININE 0.57 mg/dL (0.55-1.02)
[2020-09-09 05:38] LABS: BASOPHILS % (AUTO) 0 % (0-1); EOSINOPHILS % (AUTO) 2 % (1-7); LYMPHOCYTES % (AUTO) 25 % (22-44); MEAN CORPUSCULAR HEMOGLOBIN 30.1 pg (27.0-34.8); MEAN CORPUSCULAR HGB CONC 33.4 g/dL (32.4-35.8); MEAN PLATELET VOLUME 8.8 fL (7.4-10.4); MONOCYTES % (AUTO) 7 % (2-9); NEUTROPHILS % (AUTO) 66 % (42-75); PLATELET COUNT 219 x10^3/uL (130-400); RED BLOOD COUNT 3.91 x10^6/uL (3.82-5.3); RED CELL DISTRIBUTION WIDTH 14.8 % (9.6-15.2)
[2020-09-09] MEDS: (Iron,Carbonyl/Vit C/Vit B12/Fa** (Iron 100 Plus Tablet**) 1 T HOMEMEDPO SCH (09:00)
[2020-09-09] MEDS: LACTATED RINGERS 1,000 ML IV SCH (11:18)
[2020-09-09] MEDS ORDERED: LORazepam 2 MG/ML, 1ML ONE (21:33)
[2020-09-09] MEDS: ENOXAPARIN 40 MG/0.4 ML SQ SCH (21:50)
[2020-09-09] MEDS ORDERED: LORazepam 2 MG/ML, 1ML IVPush PRN (22:00)
[2020-09-09 22:34] LABS: BASOPHILS % (AUTO) 1 % (0-1); EOSINOPHILS % (AUTO) 2 % (1-7); LYMPHOCYTES % (AUTO) 30 % (22-44); MEAN CORPUSCULAR HEMOGLOBIN 30.2 pg (27.0-34.8); MEAN CORPUSCULAR HGB CONC 33.8 g/dL (32.4-35.8); MEAN PLATELET VOLUME 8.8 fL (7.4-10.4); MONOCYTES % (AUTO) 7 % (2-9); NEUTROPHILS % (AUTO) 61 % (42-75); PLATELET COUNT 208 x10^3/uL (130-400); RED BLOOD COUNT 3.85 x10^6/uL (3.82-5.3); RED CELL DISTRIBUTION WIDTH 15.1 % (9.6-15.2)
[2020-09-09 22:43] LABS: ALANINE AMINOTRANSFERASE 19 U/L (12-78); ALBUMIN 3.1 g/dL (3.4-5.0); ANION GAP 8 mmol/L (5-15); CALCIUM 8.4 mg/dL (8.5-10.1); CHLORIDE 110 mmol/L (98-107); CREATININE 0.64 mg/dL (0.55-1.02)
[2020-09-09 22:45] LABS: ALKALINE PHOSPHATASE 89 U/L (45-117); BILIRUBIN,TOTAL 0.2 mg/dL (0.2-1.0)
[2020-09-10] MEDS: LACTATED RINGERS 1,000 ML IV SCH ×2 (00:25→13:30)
[2020-09-10 01:04] VITALS: BP 98/67
[2020-09-10 07:44] VITALS: BP 99/65
[2020-09-10] MEDS: (Iron,Carbonyl/Vit C/Vit B12/Fa** (Iron 100 Plus Tablet**) 1 T HOMEMEDPO SCH (08:23)
[2020-09-10 13:17] VITALS: BP 98/65
== END 2020-09-10 17:52 | disposition home or self-care (01) | DRG 101 ==
LOC: ED 14:50 → EDIP 21:30 → 4EST 21:43
PROVIDERS: ADMIT Internal Medicine; ATTEND Hospitalist
DX: G40.909 Epilepsy, unspecified, not intractable, without status epilepticus (principal); E66.9 Obesity, unspecified; E87.5 Hyperkalemia; E87.6 Hypokalemia; E87.8 Other disorders of electrolyte and fluid balance, not elsewhere classified; F41.1 Generalized anxiety disorder; D64.9 Anemia, unspecified; G43.909 Migraine, unspecified, not intractable, without status migrainosus; N83.209 Unspecified ovarian cyst, unspecified side; Y99.0 Civilian activity done for income or pay; Z90.49 Acquired absence of other specified parts of digestive tract; Z79.899 Other long term (current) drug therapy; Z79.891 Long term (current) use of opiate analgesic; Z79.01 Long term (current) use of anticoagulants
CPT/HCPCS: 36415; 70450; 70553; 80048; 80053; 80299; 80307; 80320; 80329; 84146; 84443; 84703; 85025; 93005; 95816; 96374; 96376; G0378; J1650; J1953; A9575; G0480; J2060; J7120